=== PATIENT | female | born 1980 | race African-American/Black ===

== ENCOUNTER 2021-04-26 01:12 | Emergency (ER) | payer OTHER ==
[~2021-04-26] VITALS: Ht 170.2 cm; Wt 71.8 kg
[~2021-04-26 01:12] MED LIST: BENTYL20 MG PO; COREG; DIFLUCAN150 MG PO; FUROSEMIDE; HYDROCHLOROTHIA25 M1 PO; LISINOPRIL; MACROBID 100 M100 M1 PO; NORCO 5-325 TA1 EACH PO; NOVOLOG100 UNIT/1 SQ; PHENERGAN 25 MG25 MG PO
[2021-04-26] MEDS ORDERED: ROXICODONE5 MG PO (01:26)
[2021-04-26] MEDS ORDERED: CLONIDINE HCL0.1 MG PO (01:26)
[2021-04-26] MEDS ORDERED: AMLODIPINE BESY10 MG PO (01:26)
[2021-04-26] MEDS ORDERED: CLOPIDOGREL75 MG PO (01:26)
[2021-04-26] MEDS ORDERED: PREGABALIN75 MG PO (01:27)
[2021-04-26] MEDS ORDERED: HYDRALAZINE HC100 MG PO (01:27)
[2021-04-26] MEDS ORDERED: GABAPENTIN 100100 MG PO (01:27)
[2021-04-26] MEDS ORDERED: LIPITOR 40 MG T40 M1 PO (01:27)
[2021-04-26] MEDS ORDERED: COMPAZINE10 MG PO (01:27)
[2021-04-26] MEDS ORDERED: CARVEDILOL25 MG PO (01:28)
[2021-04-26] MEDS ORDERED: FLEXERIL PO (01:28)
[2021-04-26] MEDS ORDERED: OMEPRAZOLE 20 M20 M1 PO (01:28)
[2021-04-26] MEDS ORDERED: NEPHRO-VITE TA0.8 MG PO (01:28)
[2021-04-26 03:37] LABS: BASOPHILS 1.2 % (0.0-2.0); EOSINOPHILS 1.8 % (0.0-3.0); HEMATOCRIT 30.6 % (37.0-47.0); HEMOGLOBIN 9.9 gm/dL (12.0-15.0); LYMPHOCYTES 16.4 % (24.0-44.0); MCH 30.1 pg (26.0-34.0); MCHC 32.4 g/dL (28.0-37.0); MCV 92.9 fL (80.0-100.0); MONOCYTES 9.6 % (1.0-8.0); PLATELET COUNT 342 thou/uL (150-400); RDW 15.4 % (10.5-14.5); WBC 8.5 thou/uL (4.0-11.0)
[2021-04-26 03:45] LABS: CALCIUM 9.7 mg/dL (8.5-10.1); CREATININE 7.6 mg/dL (0.6-1.0)
[2021-04-26 04:13] LABS: POTASSIUM 6.1 mmol/L (3.5-5.1)
[2021-04-26 07:51] VITALS: BP 157/67
== END 2021-04-26 07:55 | disposition short-term general hospital (02) ==
LOC: ER 01:12
PROVIDERS: Emergency Medicine
DX: E11.52 Type 2 diabetes mellitus with diabetic peripheral angiopathy with gangrene (principal); Z20.822 Contact with and (suspected) exposure to COVID-19; I12.0 Hypertensive chronic kidney disease with stage 5 chronic kidney disease or end stage renal disease; N18.6 End stage renal disease; E87.5 Hyperkalemia; I96 Gangrene, not elsewhere classified; I42.9 Cardiomyopathy, unspecified; Z99.2 Dependence on renal dialysis; Z98.890 Other specified postprocedural states; Z90.89 Acquired absence of other organs; Z90.49 Acquired absence of other specified parts of digestive tract; Z79.1 Long term (current) use of non-steroidal anti-inflammatories (NSAID); Z79.891 Long term (current) use of opiate analgesic; Z79.899 Other long term (current) drug therapy; Z88.2 Allergy status to sulfonamides; F12.90 Cannabis use, unspecified, uncomplicated